=== PATIENT | female | born 1960 | race Caucasian/White ===

== ENCOUNTER → 2016-02-27 | Outpatient (CLI) | payer OTHER ==
--- NOTE | 2016-02-27 16:00 | XR ---
EXAMINATION TYPE: XR abdomen acute w cxr DATE OF EXAM: 02/27/2016 3:47 PM COMPARISON: Prior multiple view abdomen with chest x-ray dated 24 January 2016 HISTORY: Vomiting, abnormal urinalysis, R11.10, R 82.90 TECHNIQUE: Single view of the chest and 2 views of the abdomen are submitted. FINDINGS: Lung mass on the right is again noted. Prominent lung volumes suggests underlying COPD. No pneumothor ax or pleural effusion. There is no evidence of pneumoperitoneum or bowel obstruction. Vascular calci fications are again noted within the pelvis. IMPRESSION: Stable lung mass
== END | disposition home or self-care (01) ==
LOC: RADXRMAIN 15:25
PROVIDERS: ATTEND Family Medicine
DX: K59.00 Constipation, unspecified (principal)
CPT/HCPCS: 74022

== ENCOUNTER → 2016-05-08 | Outpatient (CLI) | payer OTHER ==
--- NOTE | 2016-05-08 14:19 | MR ---
EXAMINATION TYPE: MR brain wo/w con DATE OF EXAM: 05/08/2016 1:40 PM COMPARISON: CT brain February 15, 2016. HISTORY: Known metastatic brain cancer progress study. TECHNIQUE: Multiplanar, multisequence images of the brain and brainstem is performed without and with IV contras t, utilizing 8 mL intravenous MultiHance . FINDINGS: Diffusion weighted images demonstrate no evidence of a recent infarct or other diffusion ab normality. There is no extra-axial fluid collection. The ventricular system and cisternal spaces ar e stable and mildly prominent. There is redemonstration of heterogeneous left parenchymal lesion abut ting the left lateral ventricle that shows some heterogeneous peripheral linear enhancement on curren t study. It is significantly improved in size measuring 2.2 cm transversely by 2.0 cm in anterior pos terior dimension on axial image 97 by 2.1 cm in craniocaudal dimension on coronal image 16 and sagitt al image 13. Prior measurements are 4.3 cm x 3.4 cm on axial image [address] by 3.7 cm in cranio caudal dimension on series 3 image 32 without sequence. There is interval improvement in adjacent vas ogenic edema along the left lateral margin. There is interval resolution of subtle midline shift at t his level. Midline structures demonstrate normal morphology. The craniocervical junction appears within normal limits. Post contrast images demonstrate a second 4 mm suspicious enhancing parenchymal focus left hi gh parietal sulcus on axial image 123 confirmed on coronal image 20. The dural venous sinuses appear patent. There is persistent air-fluid level in left maxillary sinus. Remainder paranasal sinuses are clear. IMPRESSION: 1. Positive treatment response with improvement in left frontal lesion adjacent to the lateral ventri malcolm as detailed above. 2. New enhancing metastatic 4 mm focus high right parietal lobe is noted. RECIST CRITERIA: Partial Response : Improving disease .(Maximum Diameter 2.2 cm today vs 4.3 cm prio r)
== END | disposition home or self-care (01) ==
LOC: RADMRIMAIN 12:56
PROVIDERS: ATTEND Radiology Radiation Oncology
DX: C34.90 Malignant neoplasm of unspecified part of unspecified bronchus or lung (principal); C79.31 Secondary malignant neoplasm of brain
CPT/HCPCS: 70553; A9577

== ENCOUNTER 2016-05-25 11:35 | Emergency (ER) | payer OTHER ==
[2016-05-25] MEDS ORDERED: ACETAMINOPHEN TAB 500 MG TAB PO STA (11:54)
[2016-05-25] MEDS ORDERED: SODIUM CHLORIDE 0.9% 1,000 ML IV STA (11:55)
--- NOTE | 2016-05-25 11:58 | ED ---
General Adult HPI - General Chief complaint: Recheck/Abnormal Lab/Rx Stated complaint: HIGH HEARTRATE Time Seen by Provider: 05/25/16 11:48 Source: patient, family, RN notes reviewed Mode of arrival: wheelchair Limitations: no limitations - History of Present Illness Initial comments: Patient is a pleasant 56-year-old female presenting to the emergency department for elevated heart rate. Patient states onset of symptoms was today. Patient is treated at the oncology clinic for small cell lung cancer. Patient was being evaluated there and increased heart rate was noticed. Patient has no other complaints. Patient admits to having palpitations. No chest pain. No dyspnea. No fevers. Patient has been eating and drinking appropriately. - Related Data Home Medications Medication Instructions Recorded Confirmed Prochlorperazine [Compazine] 10 mg PO Q6H PRN 05/25/16 05/25/16 levETIRAcetam [Keppra] 500 mg PO Q12HR 05/25/16 05/25/16 Allergies Allergy/AdvReac Type Severity Reaction Status Date / Time No Known Allergies Allergy Verified 05/25/16 12:13 Review of Systems ROS Statement: Those systems with pertinent positive or pertinent negative responses have been documented in the HPI. ROS Other: All systems not noted in ROS Statement are negative. Constitutional: Denies: fever, chills Eyes: Denies: eye pain ENT: Denies: ear pain Respiratory: Denies: cough, dyspnea Cardiovascular: Reports: palpitations. Denies: chest pain Endocrine: Denies: fatigue Gastrointestinal: Denies: abdominal pain Genitourinary: Denies: dysuria Musculoskeletal: Denies: back pain Skin: Denies: rash Neurological: Denies: headache Past Medical History Past Medical History: GERD/Reflux, Hyperlipidemia Additional Past Medical History / Comment(s): LUNG CANCER- METS TO BRAIN History of Any Multi-Drug Resistant Organisms: None Reported Past Surgical History: Hysterectomy Past Psychological History: No Psychological Hx Reported Smoking Status: Current every day smoker Past Alcohol Use History: None Reported Past Drug Use History: None Reported General Exam Limitations: no limitations General appearance: alert, in no apparent distress Head exam: Present: atraumatic Eye exam: Present: normal appearance, PERRL ENT exam: Present: normal oropharynx Neck exam: Present: normal inspection Respiratory exam: Present: normal lung sounds bilaterally Cardiovascular Exam: Present: normal rhythm, tachycardia Expanded Peripheral pulses: 2+: Radial (R), Radial (L), Dorsalis Pedis (R), Dorsalis Pedis (L) GI/Abdominal exam: Present: soft. Absent: tenderness Extremities exam: Present: normal inspection. Absent: pedal edema, calf tenderness Neurological exam: Present: alert Psychiatric exam: Present: normal affect, normal mood Skin exam: Absent: rash Course Vital Signs 05/25/16 05/25/16 05/25/16 11:37 11:59 12:10 Temperature 99 F 99.1 F Pulse Rate 141 H Pulse Rate [ 124 H Machine Splitter ] Respiratory 20 Rate Blood Pressure 118/72 O2 Sat by Pulse 100 Oximetry 05/25/16 13:05 Temperature 97.4 F L Pulse Rate 118 H Pulse Rate [ Machine Splitter ] Respiratory 18 Rate Blood Pressure 110/60 O2 Sat by Pulse 98 Oximetry EKG Findings - EKG Comments: EKG Findings:: Sinus tachycardia with a rate of 120. Normal intervals. Normal axis. Normal QRS. Normal ST-T. Medical Decision Making - Medical Decision Making Patient reevaluated symptom-free. Patient feels better. Patient requests discharge. Heart rate 90. Case discussed in detail with Dr. Sarmiento who did want to ensure patient received some fluids otherwise can be discharged. - Lab Data Result diagrams: 05/25/16 12:03 05/25/16 12:03 Lab Results 05/25/16 05/25/16 05/25/16 Range/Units 12:03 12:03 12:03 WBC 14.1 H (3.8-10.6) k/uL RBC 3.22 L (3.80-5.40) m/uL Hgb 9.8 L (11.4-16.0) gm/dL Hct 31.1 L (34.0-46.0) % MCV 96.8 (80.0-100.0) fL MCH 30.5 (25.0-35.0) pg MCHC 31.5 (31.0-37.0) g/dL RDW 18.1 H (11.5-15.5) % Plt Count 594 H (150-450) k/uL Neutrophils % 85 % Lymphocytes % 9 % Monocytes % 4 % Eosinophils % 0 % Basophils % 0 % Neutrophils # 12.0 H (1.3-7.7) k/uL Lymphocytes # 1.2 (1.0-4.8) k/uL Monocytes # 0.6 (0-1.0) k/uL Eosinophils # 0.0 (0-0.7) k/uL Basophils # 0.0 (0-0.2) k/uL Hypochromasia Moderate Anisocytosis Slight Macrocytosis Slight PT (9.0-12.0) sec INR (<1.1) APTT (22.0-30.0) sec Sodium 132 L (137-145) mmol/L Potassium 4.0 (3.5-5.1) mmol/L Chloride 96 L (98-107) mmol/L Carbon Dioxide 27 (22-30) mmol/L Anion Gap 9 mmol/L BUN 5 L (7-17) mg/dL Creatinine 0.43 L (0.52-1.04) mg/dL Est GFR (MDRD) Af Amer >60 (>60 ml/min/1.73 sqM) Est GFR (MDRD) Non-Af >60 (>60 ml/min/1.73 sqM) Glucose 124 H (74-99) mg/dL Plasma Lactic Acid Mor 1.4 (0.7-2.0) mmol/L Calcium 8.7 (8.4-10.2) mg/dL Total Bilirubin 0.5 (0.2-1.3) mg/dL AST 13 L (14-36) U/L ALT 16 (9-52) U/L Alkaline Phosphatase 128 H (38-126) U/L Total Protein 6.4 (6.3-8.2) g/dL Albumin 3.2 L (3.5-5.0) g/dL Urine Color Urine Appearance (Clear) Urine pH (5.0-8.0) Ur Specific Plain (1.001-1.035) Urine Protein (Negative) Urine Glucose (UA) (Negative) Urine Ketones (Negative) Urine Blood (Negative) Urine Nitrite (Negative) Urine Bilirubin (Negative) Urine Urobilinogen (<2.0) mg/dL Ur Leukocyte Esterase (Negative) Influenza Type A RNA (Not Detectd) Influenza Type B (PCR) (Not Detectd) 05/25/16 05/25/16 05/25/16 Range/Units 12:03 12:11 13:48 WBC (3.8-10.6) k/uL RBC (3.80-5.40) m/uL Hgb (11.4-16.0) gm/dL Hct (34.0-46.0) % MCV (80.0-100.0) fL MCH (25.0-35.0) pg MCHC (31.0-37.0) g/dL RDW (11.5-15.5) % Plt Count (150-450) k/uL Neutrophils % % Lymphocytes % % Monocytes % % Eosinophils % % Basophils % % Neutrophils # (1.3-7.7) k/uL Lymphocytes # (1.0-4.8) k/uL Monocytes # (0-1.0) k/uL Eosinophils # (0-0.7) k/uL Basophils # (0-0.2) k/uL Hypochromasia Anisocytosis Macrocytosis PT 10.4 (9.0-12.0) sec INR 1.0 (<1.1) APTT 24.8 (22.0-30.0) sec Sodium (137-145) mmol/L Potassium (3.5-5.1) mmol/L Chloride (98-107) mmol/L Carbon Dioxide (22-30) mmol/L Anion Gap mmol/L BUN (7-17) mg/dL Creatinine (0.52-1.04) mg/dL Est GFR (MDRD) Af Amer (>60 ml/min/1.73 sqM) Est GFR (MDRD) Non-Af (>60 ml/min/1.73 sqM) Glucose (74-99) mg/dL Plasma Lactic Acid Mor 0.7 (0.7-2.0) mmol/L Calcium (8.4-10.2) mg/dL Total Bilirubin (0.2-1.3) mg/dL AST (14-36) U/L ALT (9-52) U/L Alkaline Phosphatase (38-126) U/L Total Protein (6.3-8.2) g/dL Albumin (3.5-5.0) g/dL Urine Color Urine Appearance (Clear) Urine pH (5.0-8.0) Ur Specific Plain (1.001-1.035) Urine Protein (Negative) Urine Glucose (UA) (Negative) Urine Ketones (Negative) Urine Blood (Negative) Urine Nitrite (Negative) Urine Bilirubin (Negative) Urine Urobilinogen (<2.0) mg/dL Ur Leukocyte Esterase (Negative) Influenza Type A RNA Not Detected (Not Detectd) Influenza Type B (PCR) Not Detected (Not Detectd) 05/25/16 Range/Units 14:42 WBC (3.8-10.6) k/uL RBC (3.80-5.40) m/uL Hgb (11.4-16.0) gm/dL Hct (34.0-46.0) % MCV (80.0-100.0) fL MCH (25.0-35.0) pg MCHC (31.0-37.0) g/dL RDW (11.5-15.5) % Plt Count (150-450) k/uL Neutrophils % % Lymphocytes % % Monocytes % % Eosinophils % % Basophils % % Neutrophils # (1.3-7.7) k/uL Lymphocytes # (1.0-4.8) k/uL Monocytes # (0-1.0) k/uL Eosinophils # (0-0.7) k/uL Basophils # (0-0.2) k/uL Hypochromasia Anisocytosis Macrocytosis PT (9.0-12.0) sec INR (<1.1) APTT (22.0-30.0) sec Sodium (137-145) mmol/L Potassium (3.5-5.1) mmol/L Chloride (98-107) mmol/L Carbon Dioxide (22-30) mmol/L Anion Gap mmol/L BUN (7-17) mg/dL Creatinine (0.52-1.04) mg/dL Est GFR (MDRD) Af Amer (>60 ml/min/1.73 sqM) Est GFR (MDRD) Non-Af (>60 ml/min/1.73 sqM) Glucose (74-99) mg/dL Plasma Lactic Acid Mor (0.7-2.0) mmol/L Calcium (8.4-10.2) mg/dL Total Bilirubin (0.2-1.3) mg/dL AST (14-36) U/L ALT (9-52) U/L Alkaline Phosphatase (38-126) U/L Total Protein (6.3-8.2) g/dL Albumin (3.5-5.0) g/dL Urine Color Yellow Urine Appearance Clear (Clear) Urine pH 6.0 (5.0-8.0) Ur Specific Plain 1.009 (1.001-1.035) Urine Protein Trace H (Negative) Urine Glucose (UA) Negative (Negative) Urine Ketones Negative (Negative) Urine Blood Negative (Negative) Urine Nitrite Negative (Negative) Urine Bilirubin Negative (Negative) Urine Urobilinogen <2.0 (<2.0) mg/dL Ur Leukocyte Esterase Negative (Negative) Influenza Type A RNA (Not Detectd) Influenza Type B (PCR) (Not Detectd) Disposition Clinical Impression: Tachycardia Disposition: HOME SELF-CARE Condition: Stable Instructions: Tachycardia (ED) Additional Instructions: Please follow-up with primary care physician and your oncologist in the next couple days for recheck. Return for fevers, weakness, increased heart rate, difficulty breathing, chest pain, worsening symptoms or other concerns. Referrals: Cassy Herrera MD [Primary Care Provider] - 1-2 days Justus Sarmiento MD [STAFF PHYSICIAN] - 1-2 days
[2016-05-25 12:20] LABS: Anisocytosis Slight; Basophils % (A) 0 %; CH 30.4; CHCM 31.7; Eosinophils % (A) 0 %; HCT 31.1 % (34.0-46.0); HDW 3.27; HGB 9.8 gm/dL (11.4-16.0); Hypochromasia Moderate; Luc # (Auto) 0.18; Luc % (Auto) 1; Lymphocytes # (A) 1.2 k/uL (1.0-4.8); Lymphocytes % (A) 9 %; MCH 30.5 pg (25.0-35.0); MCHC 31.5 g/dL (31.0-37.0); MCV 96.8 fL (80.0-100.0); Macrocytosis Slight; Monocytes # (A) 0.6 k/uL (0-1.0); Monocytes % (A) 4 %; Neutrophils % (A) 85 %; RBC 3.22 m/uL (3.80-5.40); RDW 18.1 % (11.5-15.5); WBC 14.1 k/uL (3.8-10.6)
[2016-05-25 12:33] LABS: Partial Thromboplastin Time 24.8 sec (22.0-30.0); Prothrombin Time 10.4 sec (9.0-12.0)
--- NOTE | 2016-05-25 12:36 | XR ---
EXAMINATION TYPE: XR chest 2V DATE OF EXAM: 05/25/2016 12:28 PM COMPARISON: 02/27/2016 TECHNIQUE: PA and lateral views submitted. HISTORY: Fever FINDINGS: The lungs are clear and there is no pneumothorax, pleural effusion, or focal pneumonia. Stable larg e mass right upper lobe. Underlying COPD suspected. Biapical pleural thickening. No overt failure. No new area of consolidation. Mild degenerative change of the spine. IMPRESSION: 1. Stable large right upper lobe lung mass.
[2016-05-25 12:39] LABS: ALT 16 U/L (9-52); AST 13 U/L (14-36); Alkaline Phosphatase 128 U/L (38-126); Anion Gap 9 mmol/L; Blood Urea Nitrogen 5 mg/dL (7-17); Calcium 8.7 mg/dL (8.4-10.2); Carbon Dioxide 27 mmol/L (22-30); Chloride 96 mmol/L (98-107); Glucose 124 mg/dL (74-99); Non-African American GFR(MDRD) >60 (>60 ml/min/1.73 sqM); Sodium 132 mmol/L (137-145); Total Bilirubin 0.5 mg/dL (0.2-1.3); Total Protein 6.4 g/dL (6.3-8.2)
[2016-05-25 15:15] LABS: Appearance,Urine Clear (Clear); Bilirubin,Urine Negative (Negative); Glucose,Urine (UA) Negative (Negative); Ketones,Urine Negative (Negative); Leukocyte Esterase,Urine Negative (Negative); Nitrite,Urine Negative (Negative); Protein,Urine Trace (Negative); Specific Gravity,Urine 1.009 (1.001-1.035); UA Billing (MACRO vs. MICRO) CHEM; Urobilinogen,Urine <2.0 mg/dL (<2.0)
[2016-05-25] MEDS ORDERED: SODIUM CHLORIDE 0.9% 500 ML IV STA (15:30)
[2016-05-25 16:34] VITALS: BP 122/63; PULSE 91; RESP 16; TEMP 98.1
== END 2016-05-25 16:42 | disposition home or self-care (01) ==
LOC: EC 11:35
DX: R00.0 Tachycardia, unspecified (principal); C34.90 Malignant neoplasm of unspecified part of unspecified bronchus or lung; C79.31 Secondary malignant neoplasm of brain; F17.200 Nicotine dependence, unspecified, uncomplicated; Z79.899 Other long term (current) drug therapy
CPT/HCPCS: 36415; 71020; 80053; 81003; 83605; 85025; 85610; 85730; 87040; 87086; 87502; 93005; 96360; 96361; 99285

== ENCOUNTER → 2016-05-26 | Outpatient (CLI) | payer OTHER ==
[2016-05-26 12:14] LABS: Blood Urea Nitrogen 4 mg/dL (7-17); Non-African American GFR(MDRD) >60 (>60 ml/min/1.73 sqM)
--- NOTE | 2016-05-26 13:04 | CT ---
EXAMINATION TYPE: CT angio chest DATE OF EXAM: 05/26/2016 12:56 PM COMPARISON: 01/31/2016 HISTORY: Patient poor historian. Patient has history of lung CA. Sent by physician for tachycardia to rule out pulmonary embolism CT DLP: 106.7 mGycm CONTRAST: CT chest with contrast and 3D reconstruction with MIP imaging is performed with IV Contrast, patient injected with 80 mL of Omnipaque 350. Contrast-enhanced CT of the chest was performed through the course of the pulmonary arteries with rickey g and mediastinal window settings submitted. 3D reconstruction with MIP imaging was also performed. PULMONARY ARTERIES: The pulmonary arteries and their major tributaries are patent. I do not see duong dence for sizable filling defect to suggest pulmonary embolic process. LUNGS: Right hilar lobulated mass is again noted and currently measures 6.3 x 4.6 x 4.9 cm versus 7.3 x 5.8 x 5.0 cm previously. There is an adjacent satellite nodule measuring 1.7 cm which may have bee n present previously. The mild postobstructive infiltrate is seen within the right upper lobe. Stable lobulated density in the right middle lobe measures 1.5 cm versus 1.5 cm. MEDIASTINUM: Thoracic aorta is of normal caliber . The heart is not enlarged. No evidence for media stinal mass. No mediastinal lymph nodes greater than 1cm. HILAR STRUCTURES: No evidence for mass. No hilar lymph nodes greater than 1 cm. UPPER ABDOMEN: No significant abnormality is seen. IMPRESSION: 1. No evidence for Pulmonary embolism at this time. 2. Right hilar mass with areas of postobstructive infiltrate as noted above.
== END | disposition home or self-care (01) ==
LOC: RADCTMAIN 11:38
PROVIDERS: ATTEND Internal Medicine Hematology & Oncology
DX: R91.8 Other nonspecific abnormal finding of lung field (principal); R00.0 Tachycardia, unspecified
CPT/HCPCS: 82565; 84520; 71275; 36415; Q9967

== ENCOUNTER → 2016-06-02 | Outpatient (CLI) | payer OTHER ==
[2016-06-02 08:19] LABS: Blood Urea Nitrogen 5 mg/dL (7-17); Non-African American GFR(MDRD) >60 (>60 ml/min/1.73 sqM)
--- NOTE | 2016-06-02 09:15 | CT ---
EXAMINATION TYPE: CT ChestAbdPelvis w con DATE OF EXAM: 06/02/2016 8:57 AM COMPARISON: 05/26/2016 and 01/31/2016 HISTORY: Lung cancer CT DLP: 404.20 mGycm CONTRAST: CT scan of the chest, abdomen and pelvis is performed with Oral Contrast and with IV Contrast, patien t injected with 100 ml mL of Omnipaque 300. CT Chest: LUNGS: Lobulated and heterogenous right hilar mass is slightly smaller in size compared to examinatio n of 01/31/2016 with current measurement of 5.8 x 5.7 x 4.9 cm versus 7.3 x 5.8 x 5.0 cm.The mass dem onstrates a heterogeneity and internal calcifications. Peripheral satellite nodule measures 1.3 cm ve rsus 1 cm previously. Mild postobstructive changes are seen. Mass is contiguous with the right hilum. No new masses are seen. Calcified nodule periphery of the left mid lung zone. Biapical scarring iden tified with mild emphysematous change. MEDIASTINUM: Thoracic aorta is of normal caliber. The heart is not enlarged. No evidence for media stinal mass or adenopathy. HILAR STRUCTURES: No evidence for mass. No hilar adenopathy is appreciated. OTHER: No significant abnormality. CONTRAST CT ABDOMEN AND PELVIS FINDINGS: LIVER/GB: No calcified gallstones. No space occupying hepatic lesion. Biliary tree is of normal ca liber. PANCREAS: No inflammation. No distinct mass. SPLEEN: No splenic enlargement. No lesion seen. ADRENALS: No nodule. No thickening. KIDNEYS/BLADDER: No hydronephrosis. No nephrolithiasis. No disctinct renal mass. BOWEL: Normal appendix. Normal bowel caliber. No inflammation. Moderate fecal stasis is identified. GENITAL ORGANS: Hysterectomy changes identified. LYMPH NODES: No greater than 1cm abdominal or pelvic lymph nodes are appreciated. AORTA: No significant abnormality. OSSEOUS STRUCTURES: Degenerative changes seen without definite osseous lesion. OTHER: No significant additional abnormality is seen. IMPRESSION: 1. Malignant right hilar mass is slightly smaller in size in the interval with mild postobstructive c hange and small satellite nodule identified. The mass is contiguous with the right hilum. 2. No evidence for metastatic disease to the abdomen or pelvis at this time.
== END | disposition home or self-care (01) ==
LOC: RADCTMAIN 07:45
PROVIDERS: ATTEND Internal Medicine Hematology & Oncology
DX: C34.90 Malignant neoplasm of unspecified part of unspecified bronchus or lung (principal); R91.1 Solitary pulmonary nodule
CPT/HCPCS: 82565; 84520; 71260; 74177; 36415; Q9967

== ENCOUNTER → 2016-06-08 | Outpatient (CLI) | payer OTHER ==
--- NOTE | 2016-06-09 08:24 | MR ---
EXAMINATION TYPE: MR brain wo/w con DATE OF EXAM: 06/08/2016 11:59 AM COMPARISON: MRI brain May 08, 2016. HISTORY: Secondary malignant neoplasm of brain, metastatic disease progress study. TECHNIQUE: Multiplanar, multisequence images of the brain and brainstem is performed without and with IV contras t, utilizing 7 mL intravenous MultiHance . FINDINGS: Diffusion weighted images demonstrate no evidence of a recent infarct or other diffusion ab normality. There is no worrisome extra-axial fluid collection. There is mild ventricular and sulcal prominence consistent with diffuse age-related cerebral atrophy redemonstrated. There is redemonstrat ion of heterogeneous left parenchymal lesion abutting the left lateral ventricle that redemonstrates heterogeneous rim type enhancement that measures 2.1 x 1.9 cm on current study axial image 49 felt gr ossly stable in size versus prior exam. Craniocaudal dimension is 2.4 cm on sagittal image [address] able. Some adjacent vasogenic edema along the superior aspect of lesion remains present and felt stab le. There is stable 4 mm enhancing gyral focus high right parietal lobe on axial image 61 All post co ntrast images are degraded by artifact. No obvious new enhancing lesion is present. Midline structures demonstrate normal morphology. The craniocervical junction appears within normal limits. Post contrast images demonstrate no abnormal enhancement. The dural venous sinuses appear pa tent. The globes are intact bilaterally. There is interval resolution of air-fluid level in the left maxillary sinus. There is new mild to moderate mucosal thickening involving left sphenoid sinus. IMPRESSION: 1. Left frontal lesion adjacent to lateral ventricle is stable. Tiny high right parietal focus is sta ble. No new enhancing lesions are seen.
== END | disposition home or self-care (01) ==
LOC: RADMRIMAIN 11:13
PROVIDERS: ATTEND Radiology Radiation Oncology
DX: C79.31 Secondary malignant neoplasm of brain (principal)
CPT/HCPCS: 70553; A9577

== ENCOUNTER 2016-07-14 10:24 | Inpatient (IN) | payer OTHER ==
[2016-07-14] MEDS ORDERED: ONDANSETRON 4 MG/2 ML VIAL IVP STA (10:44)
[2016-07-14] MEDS ORDERED: SODIUM CHLORIDE 0.9% 500 ML IV STA (10:44)
[2016-07-14] MEDS ORDERED: SODIUM CHLORIDE 0.9% 1,000 ML IV STA (10:44)
[2016-07-14] MEDS ORDERED: cefTRIAXone 2,000 MG in SODIUM CHLORIDE 0.9% 100 ML IVPB STA (10:45)
[2016-07-14 11:02] LABS: Basophils % (A) 0 %; CH 30.3; CHCM 31.4; Eosinophils % (A) 0 %; HCT 35.4 % (34.0-46.0); HGB 11.2 gm/dL (11.4-16.0); Hypochromasia Slight; Luc # (Auto) 0.08; Luc % (Auto) 1; Lymphocytes % (A) 13 %; MCH 30.4 pg (25.0-35.0); MCHC 31.5 g/dL (31.0-37.0); MCV 96.5 fL (80.0-100.0); Monocytes # (A) 0.3 k/uL (0-1.0); Monocytes % (A) 4 %; Neutrophils # (A) 6.3 k/uL (1.3-7.7); Neutrophils % (A) 81 %; RBC 3.67 m/uL (3.80-5.40); RDW 14.6 % (11.5-15.5); WBC 7.8 k/uL (3.8-10.6); WBC (Perox) 8.04
[2016-07-14 11:09] LABS: ALT 17 U/L (9-52); AST 16 U/L (14-36); Alkaline Phosphatase 108 U/L (38-126); Anion Gap 9 mmol/L; Blood Urea Nitrogen 8 mg/dL (7-17); Calcium 8.7 mg/dL (8.4-10.2); Carbon Dioxide 27 mmol/L (22-30); Chloride 98 mmol/L (98-107); Glucose 185 mg/dL (74-99); Non-African American GFR(MDRD) >60 (>60 ml/min/1.73 sqM); Potassium 3.2 mmol/L (3.5-5.1); Sodium 134 mmol/L (137-145); Total Bilirubin 0.5 mg/dL (0.2-1.3); Total Protein 6.2 g/dL (6.3-8.2)
[2016-07-14 11:17] LABS: INR 1.1 (<1.1); Partial Thromboplastin Time 24.7 sec (22.0-30.0); Prothrombin Time 10.9 sec (9.0-12.0)
--- NOTE | 2016-07-14 11:18 | XR ---
EXAMINATION TYPE: XR chest 2V DATE OF EXAM: 07/14/2016 COMPARISON: Prior chest x-ray 05/25/2016 HISTORY: Weakness, lung carcinoma TECHNIQUE: Frontal and lateral views of the chest are obtained. FINDINGS: The patient's right-sided upper lobe mass is again noted and is thought to have grown slig htly in the interval measuring slightly greater than 7 cm. No evident adenopathy. No pneumothorax or pleural effusion. Heart is small. There are overlying cardiac leads. IMPRESSION: Right upper lobe mass has enlarged.
[2016-07-14 11:22] LABS: Creatine Kinase <20 U/L (30-135)
[2016-07-14 11:35] LABS: Creatine Kinase MB <0.2 ng/mL (0.0-2.4); Troponin I <0.012 ng/mL (0.000-0.034)
[2016-07-14] MEDS ORDERED: POTASSIUM CHLORIDE ORAL LIQUID 40 MEQ/30 ML CUP PO ONE (12:39)
--- NOTE | 2016-07-14 12:39 | ED ---
Weakness HPI - General Chief complaint: Weakness Stated complaint: Weakness Time Seen by Provider: 07/14/16 10:27 Source: patient, family, EMS Mode of arrival: EMS Limitations: no limitations - History of Present Illness Initial comments: 56 years old has a history of hemorrhagic stroke, lung mass she came in with her said she is not eating well she has been vomiting and has some loose stools she has a hard time keeping anything down has lost a lot of weight and she is to the point where she hardly Move or get out of the bed she was done with her treatment in May she had a mild fever today and now Stephen tracing. She denies any headaches no chest pain she has a shortness of breath no abdominal pain no frequency urgency dysuria no symptoms of TIA or CVA - Related Data Home Medications Medication Instructions Recorded Confirmed levETIRAcetam [Keppra] 500 mg PO Q12HR 05/25/16 07/14/16 Docusate [Colace] 100 mg PO DAILY PRN 07/14/16 07/14/16 Dronabinol [Marinol] 2.5 mg PO DAILY 07/14/16 07/14/16 Pravastatin Sodium [Pravachol] 20 mg PO DAILY 07/14/16 07/14/16 Allergies Allergy/AdvReac Type Severity Reaction Status Date / Time No Known Allergies Allergy Verified 07/14/16 10:36 Review of Systems ROS Statement: Those systems with pertinent positive or pertinent negative responses have been documented in the HPI. ROS Other: All systems not noted in ROS Statement are negative. Past Medical History Past Medical History: GERD/Reflux, Hyperlipidemia Additional Past Medical History / Comment(s): LUNG CANCER- METS TO BRAIN History of Any Multi-Drug Resistant Organisms: None Reported Past Surgical History: Hysterectomy Past Psychological History: No Psychological Hx Reported Smoking Status: Current every day smoker Past Alcohol Use History: None Reported Past Drug Use History: None Reported - Past Family History Father Family Medical History: No Reported History Mother Family Medical History: No Reported History General Exam - General Exam Comments Initial Comments: General: The patient is awake but she is very weak, very thin looks pale and looks dehydrated, GCS is 15 Skin: Skin is warm and dry and no rashes or lesions are noted. Eye: Pupils are equal, round and reactive to light, extra-ocular movements are intact; there is normal conjunctiva bilaterally. Ears, nose, mouth and throat: Mucosal membranes are dry, dehydrated Neck: The neck is supple, there is no tenderness or JVD. Cardiovascular: There is regular rate and rhythm, significant tachycardia Respiratory: To auscultation bilateral, his breath sounds at the bases with a crackles Gastrointestinal: Soft, non-distended, non-tender abdomen without masses or organomegaly noted. There is no rebound or guarding present. Bowel sounds are unremarkable. Back: There is no tenderness to palpation in the midline. There is no obvious deformity. Musculoskeletal: Normal ROM, no tenderness, There is no pedal edema. There is no calf tenderness or swelling. No cords were appreciated. Neurological: CN II-XII intact, Cranial nerves III through XII are intact. There are no obvious motor or sensory deficits. Coordination appears grossly intact. Speech is normal. Psychiatric: Cooperative, seems depressed. Limitations: no limitations Course Vital Signs 07/14/16 07/14/16 07/14/16 10:26 10:30 11:27 Temperature 99.8 F H Pulse Rate 137 H 112 H Respiratory 20 20 Rate Blood Pressure 120/80 O2 Sat by Pulse 99 100 Oximetry 07/14/16 07/14/16 07/14/16 11:48 12:57 13:17 Temperature Pulse Rate 109 H 106 H 92 Respiratory 16 16 20 Rate Blood Pressure 120/73 123/69 137/70 O2 Sat by Pulse 99 100 98 Oximetry 07/14/16 07/14/16 07/14/16 14:25 15:23 16:33 Temperature 99 F Pulse Rate 94 100 90 Respiratory 16 18 16 Rate Blood Pressure 125/70 132/73 129/70 O2 Sat by Pulse 100 99 100 Oximetry 07/14/16 07/14/16 17:11 17:30 Temperature 98.2 F Pulse Rate 90 Respiratory 18 Rate Blood Pressure 123/64 O2 Sat by Pulse 100 Oximetry EKG Findings - EKG Comments: EKG Findings:: Heart rate is 30 J to sinus tach ID interval is 122 QRS duration is 82 QT/QTc is 310/459 examination this EKG does not reveal any ST elevation or ST depression Medical Decision Making - Lab Data Result diagrams: 07/14/16 10:33 07/16/16 16:51 Lab Results 07/14/16 07/14/16 07/14/16 Range/Units 10:33 10:33 10:33 WBC 7.8 (3.8-10.6) k/uL RBC 3.67 L (3.80-5.40) m/uL Hgb 11.2 L (11.4-16.0) gm/dL Hct 35.4 (34.0-46.0) % MCV 96.5 (80.0-100.0) fL MCH 30.4 (25.0-35.0) pg MCHC 31.5 (31.0-37.0) g/dL RDW 14.6 (11.5-15.5) % Plt Count 378 (150-450) k/uL Neutrophils % 81 % Lymphocytes % 13 % Monocytes % 4 % Eosinophils % 0 % Basophils % 0 % Neutrophils # 6.3 (1.3-7.7) k/uL Lymphocytes # 1.0 (1.0-4.8) k/uL Monocytes # 0.3 (0-1.0) k/uL Eosinophils # 0.0 (0-0.7) k/uL Basophils # 0.0 (0-0.2) k/uL Hypochromasia Slight PT (9.0-12.0) sec INR (<1.1) APTT (22.0-30.0) sec Sodium 134 L (137-145) mmol/L Potassium 3.2 L (3.5-5.1) mmol/L Chloride 98 (98-107) mmol/L Carbon Dioxide 27 (22-30) mmol/L Anion Gap 9 mmol/L BUN 8 (7-17) mg/dL Creatinine 0.36 L (0.52-1.04) mg/dL Est GFR (MDRD) Af Amer >60 (>60 ml/min/1.73 sqM) Est GFR (MDRD) Non-Af >60 (>60 ml/min/1.73 sqM) Glucose 185 H (74-99) mg/dL Plasma Lactic Acid Mor (0.7-2.0) mmol/L Calcium 8.7 (8.4-10.2) mg/dL Magnesium (1.6-2.3) mg/dL Total Bilirubin 0.5 (0.2-1.3) mg/dL AST 16 (14-36) U/L ALT 17 (9-52) U/L Alkaline Phosphatase 108 (38-126) U/L Total Creatine Kinase <20 L (30-135) U/L CK-MB (CK-2) <0.2 (0.0-2.4) ng/mL CK-MB (CK-2) Rel Index Troponin I <0.012 (0.000-0.034) ng/mL NT-Pro-B Natriuret Pep pg/mL Total Protein 6.2 L (6.3-8.2) g/dL Albumin 3.1 L (3.5-5.0) g/dL Urine Color Urine Appearance (Clear) Urine pH (5.0-8.0) Ur Specific [place] (1.001-1.035) Urine Protein (Negative) Urine Glucose (UA) (Negative) Urine Ketones (Negative) Urine Blood (Negative) Urine Nitrite (Negative) Urine Bilirubin (Negative) Urine Urobilinogen (<2.0) mg/dL Ur Leukocyte Esterase (Negative) Urine WBC (0-5) /hpf Ur Squamous Epith Cells (0-4) /hpf Amorphous Sediment (None) /hpf Urine Mucus (None) /hpf 07/14/16 07/14/16 07/14/16 Range/Units 10:33 10:33 10:54 WBC (3.8-10.6) k/uL RBC (3.80-5.40) m/uL Hgb (11.4-16.0) gm/dL Hct (34.0-46.0) % MCV (80.0-100.0) fL MCH (25.0-35.0) pg MCHC (31.0-37.0) g/dL RDW (11.5-15.5) % Plt Count (150-450) k/uL Neutrophils % % Lymphocytes % % Monocytes % % Eosinophils % % Basophils % % Neutrophils # (1.3-7.7) k/uL Lymphocytes # (1.0-4.8) k/uL Monocytes # (0-1.0) k/uL Eosinophils # (0-0.7) k/uL Basophils # (0-0.2) k/uL Hypochromasia PT 10.9 (9.0-12.0) sec INR 1.1 (<1.1) APTT 24.7 (22.0-30.0) sec Sodium (137-145) mmol/L Potassium (3.5-5.1) mmol/L Chloride (98-107) mmol/L Carbon Dioxide (22-30) mmol/L Anion Gap mmol/L BUN (7-17) mg/dL Creatinine (0.52-1.04) mg/dL Est GFR (MDRD) Af Amer (>60 ml/min/1.73 sqM) Est GFR (MDRD) Non-Af (>60 ml/min/1.73 sqM) Glucose (74-99) mg/dL Plasma Lactic Acid Mor 2.0 (0.7-2.0) mmol/L Calcium (8.4-10.2) mg/dL Magnesium (1.6-2.3) mg/dL Total Bilirubin (0.2-1.3) mg/dL AST (14-36) U/L ALT (9-52) U/L Alkaline Phosphatase (38-126) U/L Total Creatine Kinase (30-135) U/L CK-MB (CK-2) (0.0-2.4) ng/mL CK-MB (CK-2) Rel Index Troponin I (0.000-0.034) ng/mL NT-Pro-B Natriuret Pep 309 pg/mL Total Protein (6.3-8.2) g/dL Albumin (3.5-5.0) g/dL Urine Color Urine Appearance (Clear) Urine pH (5.0-8.0) Ur Specific [place] (1.001-1.035) Urine Protein (Negative) Urine Glucose (UA) (Negative) Urine Ketones (Negative) Urine Blood (Negative) Urine Nitrite (Negative) Urine Bilirubin (Negative) Urine Urobilinogen (<2.0) mg/dL Ur Leukocyte Esterase (Negative) Urine WBC (0-5) /hpf Ur Squamous Epith Cells (0-4) /hpf Amorphous Sediment (None) /hpf Urine Mucus (None) /hpf 07/14/16 07/15/16 07/15/16 Range/Units 12:57 11:23 19:43 WBC (3.8-10.6) k/uL RBC (3.80-5.40) m/uL Hgb (11.4-16.0) gm/dL Hct (34.0-46.0) % MCV (80.0-100.0) fL MCH (25.0-35.0) pg MCHC (31.0-37.0) g/dL RDW (11.5-15.5) % Plt Count (150-450) k/uL Neutrophils % % Lymphocytes % % Monocytes % % Eosinophils % % Basophils % % Neutrophils # (1.3-7.7) k/uL Lymphocytes # (1.0-4.8) k/uL Monocytes # (0-1.0) k/uL Eosinophils # (0-0.7) k/uL Basophils # (0-0.2) k/uL Hypochromasia PT (9.0-12.0) sec INR (<1.1) APTT (22.0-30.0) sec Sodium 133 L (137-145) mmol/L Potassium 3.4 L 6.1 H (3.5-5.1) mmol/L Chloride 101 (98-107) mmol/L Carbon Dioxide 25 (22-30) mmol/L Anion Gap 7 mmol/L BUN 3 L (7-17) mg/dL Creatinine 0.30 L (0.52-1.04) mg/dL Est GFR (MDRD) Af Amer >60 (>60 ml/min/1.73 sqM) Est GFR (MDRD) Non-Af >60 (>60 ml/min/1.73 sqM) Glucose 88 (74-99) mg/dL Plasma Lactic Acid Mor (0.7-2.0) mmol/L Calcium 8.1 L (8.4-10.2) mg/dL Magnesium (1.6-2.3) mg/dL Total Bilirubin (0.2-1.3) mg/dL AST (14-36) U/L ALT (9-52) U/L Alkaline Phosphatase (38-126) U/L Total Creatine Kinase (30-135) U/L CK-MB (CK-2) (0.0-2.4) ng/mL CK-MB (CK-2) Rel Index Troponin I (0.000-0.034) ng/mL NT-Pro-B Natriuret Pep pg/mL Total Protein (6.3-8.2) g/dL Albumin (3.5-5.0) g/dL Urine Color Yellow Urine Appearance Turbid H (Clear) Urine pH 6.0 (5.0-8.0) Ur Specific [place] 1.020 (1.001-1.035) Urine Protein 1+ H (Negative) Urine Glucose (UA) Negative (Negative) Urine Ketones 1+ H (Negative) Urine Blood Negative (Negative) Urine Nitrite Negative (Negative) Urine Bilirubin Negative (Negative) Urine Urobilinogen <2.0 (<2.0) mg/dL Ur Leukocyte Esterase Negative (Negative) Urine WBC 8 H (0-5) /hpf Ur Squamous Epith Cells 2 (0-4) /hpf Amorphous Sediment Occasional H (None) /hpf Urine Mucus Many H (None) /hpf 07/15/16 07/16/16 07/16/16 Range/Units 20:59 01:15 07:45 WBC (3.8-10.6) k/uL RBC (3.80-5.40) m/uL Hgb (11.4-16.0) gm/dL Hct (34.0-46.0) % MCV (80.0-100.0) fL MCH (25.0-35.0) pg MCHC (31.0-37.0) g/dL RDW (11.5-15.5) % Plt Count (150-450) k/uL Neutrophils % % Lymphocytes % % Monocytes % % Eosinophils % % Basophils % % Neutrophils # (1.3-7.7) k/uL Lymphocytes # (1.0-4.8) k/uL Monocytes # (0-1.0) k/uL Eosinophils # (0-0.7) k/uL Basophils # (0-0.2) k/uL Hypochromasia PT (9.0-12.0) sec INR (<1.1) APTT (22.0-30.0) sec Sodium 132 L (137-145) mmol/L Potassium 4.2 3.1 L (3.5-5.1) mmol/L Chloride 102 (98-107) mmol/L Carbon Dioxide 23 (22-30) mmol/L Anion Gap 7 mmol/L BUN <2 L (7-17) mg/dL Creatinine 0.28 L (0.52-1.04) mg/dL Est GFR (MDRD) Af Amer >60 (>60 ml/min/1.73 sqM) Est GFR (MDRD) Non-Af >60 (>60 ml/min/1.73 sqM) Glucose 85 (74-99) mg/dL Plasma Lactic Acid Mor (0.7-2.0) mmol/L Calcium 7.6 L (8.4-10.2) mg/dL Magnesium 1.5 L (1.6-2.3) mg/dL Total Bilirubin (0.2-1.3) mg/dL AST (14-36) U/L ALT (9-52) U/L Alkaline Phosphatase (38-126) U/L Total Creatine Kinase (30-135) U/L CK-MB (CK-2) (0.0-2.4) ng/mL CK-MB (CK-2) Rel Index Troponin I (0.000-0.034) ng/mL NT-Pro-B Natriuret Pep pg/mL Total Protein (6.3-8.2) g/dL Albumin (3.5-5.0) g/dL Urine Color Urine Appearance (Clear) Urine pH (5.0-8.0) Ur Specific [place] (1.001-1.035) Urine Protein (Negative) Urine Glucose (UA) (Negative) Urine Ketones (Negative) Urine Blood (Negative) Urine Nitrite (Negative) Urine Bilirubin (Negative) Urine Urobilinogen (<2.0) mg/dL Ur Leukocyte Esterase (Negative) Urine WBC (0-5) /hpf Ur Squamous Epith Cells (0-4) /hpf Amorphous Sediment (None) /hpf Urine Mucus (None) /hpf 07/16/16 Range/Units 11:55 WBC (3.8-10.6) k/uL RBC (3.80-5.40) m/uL Hgb (11.4-16.0) gm/dL Hct (34.0-46.0) % MCV (80.0-100.0) fL MCH (25.0-35.0) pg MCHC (31.0-37.0) g/dL RDW (11.5-15.5) % Plt Count (150-450) k/uL Neutrophils % % Lymphocytes % % Monocytes % % Eosinophils % % Basophils % % Neutrophils # (1.3-7.7) k/uL Lymphocytes # (1.0-4.8) k/uL Monocytes # (0-1.0) k/uL Eosinophils # (0-0.7) k/uL Basophils # (0-0.2) k/uL Hypochromasia PT (9.0-12.0) sec INR (<1.1) APTT (22.0-30.0) sec Sodium (137-145) mmol/L Potassium 3.0 L* (3.5-5.1) mmol/L Chloride (98-107) mmol/L Carbon Dioxide (22-30) mmol/L Anion Gap mmol/L BUN (7-17) mg/dL Creatinine (0.52-1.04) mg/dL Est GFR (MDRD) Af Amer (>60 ml/min/1.73 sqM) Est GFR (MDRD) Non-Af (>60 ml/min/1.73 sqM) Glucose (74-99) mg/dL Plasma Lactic Acid Mor (0.7-2.0) mmol/L Calcium (8.4-10.2) mg/dL Magnesium 2.1 (1.6-2.3) mg/dL Total Bilirubin (0.2-1.3) mg/dL AST (14-36) U/L ALT (9-52) U/L Alkaline Phosphatase (38-126) U/L Total Creatine Kinase (30-135) U/L CK-MB (CK-2) (0.0-2.4) ng/mL CK-MB (CK-2) Rel Index Troponin I (0.000-0.034) ng/mL NT-Pro-B Natriuret Pep pg/mL Total Protein (6.3-8.2) g/dL Albumin (3.5-5.0) g/dL Urine Color Urine Appearance (Clear) Urine pH (5.0-8.0) Ur Specific [place] (1.001-1.035) Urine Protein (Negative) Urine Glucose (UA) (Negative) Urine Ketones (Negative) Urine Blood (Negative) Urine Nitrite (Negative) Urine Bilirubin (Negative) Urine Urobilinogen (<2.0) mg/dL Ur Leukocyte Esterase (Negative) Urine WBC (0-5) /hpf Ur Squamous Epith Cells (0-4) /hpf Amorphous Sediment (None) /hpf Urine Mucus (None) /hpf Disposition Clinical Impression: Tachycardia, Dehydration, Profound fatigue Disposition: ADMITTED IP TO THIS HOSP
[2016-07-14] MEDS ORDERED: SODIUM CHLORIDE 0.9% 1,000 ML IV ONE (12:41)
[2016-07-14] MEDS ORDERED: DOCUSATE 100 MG CAP PO PRN (12:45)
[2016-07-14 13:21] LABS: Amorphous Sediment,Urine Occasional /hpf; Appearance,Urine Turbid (Clear); Bilirubin,Urine Negative (Negative); Glucose,Urine (UA) Negative (Negative); Ketones,Urine 1+ (Negative); Leukocyte Esterase,Urine Negative (Negative); Mucus,Urine Many /hpf; Nitrite,Urine Negative (Negative); Particle Count 31728; Protein,Urine 1+ (Negative); Squamous Epithelial Cell,Urine 2 /hpf (0-4); UA Billing (MACRO vs. MICRO) MICRO; Urobilinogen,Urine <2.0 mg/dL (<2.0); WBC,Urine 8 /hpf (0-5)
[2016-07-14] MEDS: levETIRAcetam 500 MG TAB PO SCH (20:21)
[2016-07-15] MEDS: DRONABINOL 2.5 MG CAP PO SCH (08:12)
[2016-07-15] MEDS: levETIRAcetam 500 MG TAB PO SCH ×2 (08:13→21:02)
[2016-07-15] MEDS: PRAVASTATIN SODIUM 20 MG TAB PO SCH (08:13)
[2016-07-15] MEDS ORDERED: cefTRIAXone 2,000 MG in SODIUM CHLORIDE 0.9% 100 ML IVPB SCH (09:00)
[2016-07-15 10:58] VITALS: BMI 13.1
[2016-07-15 12:38] LABS: Anion Gap 7 mmol/L; Blood Urea Nitrogen 3 mg/dL (7-17); Calcium 8.1 mg/dL (8.4-10.2); Carbon Dioxide 25 mmol/L (22-30); Chloride 101 mmol/L (98-107); Glucose 88 mg/dL (74-99); Non-African American GFR(MDRD) >60 (>60 ml/min/1.73 sqM); Potassium 3.4 mmol/L (3.5-5.1); Sodium 133 mmol/L (137-145)
--- NOTE | 2016-07-15 12:44 | HP ---
DATE OF ADMISSION: A 56-year-old with history of lung mass and multiple metastatic lesions for which patient was receiving radiation therapy, came in with complaints of generalized weakness. Patient does not have any focal weakness and patient is severely cachectic. Patient has a history of lung cancer for which patient completed chemotherapy and patient has had radiation therapy for her brain mets. Patient does not have any focal weakness or focal sensory deficits. Patient denied any fever, chills. Patient denied any nausea. Patient has been vomiting, apparently. Patient did not have those symptoms here today and patient did not have any fever. Patient denied any dysuria, cough. Patient appears to be too severely cachectic, malnourished and dehydrated because of which patient was weak but did improve with IV fluids, which I am increasing 100 mL from 50 mL. Patient does have acute renal failure and hypovolemic hyponatremia. REVIEW OF SYSTEMS: GENERAL: As described in HPI. GASTROINTESTINAL: As described in HPI. HEENT: No recent visual problems or hearing problems. Denied any sore throat. CARDIOVASCULAR: No chest pain, orthopnea, PND, no palpitations, no syncope. PULMONARY: No shortness of breath, no cough, no hemoptysis. NEUROLOGICAL: No headaches, no weakness, no numbness. HEMATOLOGICAL: Denies any bleeding or petechiae. GENITOURINARY: Denies any burning micturition, frequency, or urgency. MUSCULOSKELETAL/RHEUMATOLOGICAL: Denies any joint pain, swelling, or any muscle pain. ENDOCRINE: Denies any polyuria or polydipsia. The rest of the 14 point review of systems is negative. Home medications include: 1. Levetiracetam. 2. Docusate. 3. Dronabinol. 4. Pravastatin. Levetiracetam she is taking basically prophylactically for her brain mets. No known drug allergies. PAST MEDICAL HISTORY: Significant for gastroesophageal disease, hyperlipidemia, lung cancer with metastases disease to brain. Patient had a hysterectomy. SOCIAL HISTORY: Patient does smoke. Denied any alcohol abuse or any drug abuse. FAMILY HISTORY: Not available at this point of time. PHYSICAL EXAMINATION: VITAL SIGNS: Temperature 98.1, pulse of 106, respiratory rate of 18, blood pressure 119/60. Saturating at 99% on room air. GENERAL: Patient is severely cachectic, thin built female., patient has significant generalized weakness. NEUROLOGICAL: Bilateral upper and lower limbs strength is only about 3 to 4/5. HEENT: Pupils are round and equally reacting to light. EOMI. No scleral icterus. No conjunctival pallor. Normocephalic, atraumatic. No pharyngeal erythema. No thyromegaly. CARDIOVASCULAR: S1 and S2 present. No murmurs, rubs, or gallops. PULMONARY: Chest is clear to auscultation, no wheezing or crackles. ABDOMEN: Soft, nontender, nondistended, normoactive bowel sounds. No palpable organomegaly. MUSCULOSKELETAL: No joint swelling or deformity. EXTREMITIES: No cyanosis, clubbing, or pedal edema. SKIN: No rashes. LABORATORY DATA: CBC and BMP are abnormal for sodium of 134, hemoglobin of 11.4, creatinine is 0.36. Blood glucose is 185. ASSESSMENT AND PLAN: 1. Severe generalized weakness secondary to dehydration as well as malnutrition which appears to be moderate to severe malnutrition. Will start her on Ensure. Patient will continue with dronabinol and IV fluids will be increased. Patient already has symptomatic improvement. Patient probably will require subacute rehabilitation. PT and OT evaluated the patient. 2. Severe cachexia secondary to her primary lung cancer. 3. Hyperlipidemia. 4. Lung cancer with metastatic lesions to brain and patient received radiation therapy. Oncology evaluated the patient and I will leave the decision of repeating the CT of the head to them. 5. Tachycardia due to dehydration. 6. Hypovolemic hyponatremia, expected to improve with IV fluids. 7. Acute renal failure, expected to improve with IV fluids
[2016-07-15] MEDS ORDERED: Potassium Replacement Protocol 1 EACH MISC MISCELLANE PRN (15:21)
[2016-07-15] MEDS: POTASSIUM CHLORIDE ER 20 MEQ TAB.ER PO SCH ×2 (16:49→17:48)
[2016-07-15] MEDS ORDERED: RX INFO: IV CONTRAST WAS GIVEN 1 EACH MISC MISCELLANE PRN (17:08)
[2016-07-15] MEDS: SODIUM CHLORIDE 0.9% 1,000 ML IV SCH (17:12)
[2016-07-15] MEDS: HEPARIN SODIUM,PORCINE 5,000 UNIT/ML 1 ML VIAL SQ SCH (21:04)
[2016-07-16] MEDS ORDERED: Magnesium Replacement Protocol 1 EACH MISC MISCELLANE PRN (02:04)
[2016-07-16] MEDS: MAGNESIUM SULFATE-D5W PMX 1 GM in DEXTROSE/WATER 1 100ML.BAG IVPB SCH ×2 (03:07→04:34)
[2016-07-16] MEDS: SODIUM CHLORIDE 0.9% 1,000 ML IV SCH ×3 (07:30→20:59)
[2016-07-16 08:45] LABS: Anion Gap 7 mmol/L; Blood Urea Nitrogen <2 mg/dL (7-17); Calcium 7.6 mg/dL (8.4-10.2); Carbon Dioxide 23 mmol/L (22-30); Chloride 102 mmol/L (98-107); Glucose 85 mg/dL (74-99); Non-African American GFR(MDRD) >60 (>60 ml/min/1.73 sqM); Potassium 3.1 mmol/L (3.5-5.1); Sodium 132 mmol/L (137-145)
[2016-07-16] MEDS: HEPARIN SODIUM,PORCINE 5,000 UNIT/ML 1 ML VIAL SQ SCH ×2 (08:47→20:58)
[2016-07-16] MEDS: DRONABINOL 2.5 MG CAP PO SCH (08:47)
[2016-07-16] MEDS: levETIRAcetam 500 MG TAB PO SCH ×2 (08:48→20:59)
[2016-07-16] MEDS: PRAVASTATIN SODIUM 20 MG TAB PO SCH (08:48)
[2016-07-16] MEDS ORDERED: ONDANSETRON 4 MG/2 ML VIAL IVP PRN (08:49)
--- NOTE | 2016-07-16 08:59 | P.CONS ---
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 Apparently a small nodule had been present on previous CXR in 02/28. She had a CT chest with contrast on confirming a 6 cm lobulated mass in the RUL ( perihilar area). She proceeded to a bronchoscopy with Dr Malin on 02/07/16, with no definite endobronchial lesions seen. Transbronchial biopsies were positive for small cell undifferentiated carcinoma. PET scan on 02/14/16 revealed uptake only in the lung mass. The pt presented to [facility] ER on 02/15/16 with a syncopal episode and difficulty with finding words. Non contrast CT brain indicated a possible hemorrhagic stroke in the left frontal lobe. She was transferred to [facility]. MRI of brain showed a 4.1 x 4.3 cm mass in the left frontal lobe, and a 0.8 cm mass in the right frontal lobe. The pt was started on Decadron with marked improvement in symptoms. She was also placed on Keppra. She was discharged and started on WBRT at [facility] on 02/20/16, and completed that on 03/10/16. She then started [employer] 16 and Carboplatin and is s/p 4 cycles, completing those in mid 06/01. CT scans and MRI in 06/01 showed a partial response. She was admitted this time with a 5-6 day h/o profound, progressive weakness, and decreased appetite. She was needing help even to transfer. Her PO intake had declined markedly. She was clinically dehydrated, and was thus admitted, and consult placed. Review of Systems Constitutional: Reports poor appetite, Reports weakness, Reports weight loss Eyes: denies blurred vision, denies pain Ears: deny: decreased hearing, ear discharge, earache, tinnitus Ears, nose, mouth and throat: Denies headache, Denies sore throat Cardiovascular: Reports shortness of breath Respiratory: Reports cough, Reports dyspnea Gastrointestinal: Reports early satiety, Denies abdominal pain, Denies diarrhea , Denies nausea, Denies vomiting Genitourinary: Denies dysuria, Denies hematuria Menstruation: Reports postmenopausal Musculoskeletal: Reports muscle weakness Integumentary: Denies pruritus, Denies rash Neurological: Reports weakness Psychiatric: Reports difficulty concentrating Endocrine: Reports fatigue, Reports weight change Hematologic/Lymphatic: Reports as per HPI Past Medical History Past Medical History: COPD, GERD/Reflux, Hyperlipidemia Additional Past Medical History / Comment(s): DX W/LUNG CANCER DEC 2015 HAS HAD CHEMO THEN FOUND- METS TO BRAIN-HAS HAD RADIATION TX. OCC INTERMITTENT CONFUSION , CHRONIC BACK PAIN, WEARS DEPENDS. History of Any Multi-Drug Resistant Organisms: None Reported Past Surgical History: Hysterectomy Past Anesthesia/Blood Transfusion Reactions: No Reported Reaction Additional Past Anesthesia/Blood Transfusion Reaction / Comm: HAD 1 BLOOD TRANSFUSION-NO REACTION Past Psychological History: No Psychological Hx Reported Additional Psychological History / Comment(s): LIVES WITH SPOUSE [place],IN A SINGLE LEVEL HOME THAT HAS 5 STEPS TO ENTER.HAS 2 CATS AND 1 TURTLE. PT WEAK, USES A W/C OR ELECTRIC SCOOTER.STATED NO OUTSIDE SERVICES RECIEVED AND NO MEDICAL EQUIPMENT AT HOME. Smoking Status: Current every day smoker Past Alcohol Use History: Occasional Additional Past Alcohol Use History / Comment(s): PT NOT SURE EXACTLY WHEN SHE STARTED SMOKING -STATED "YOUNG" DOWN FROM 1.5 PPD TO 3 CIG PER DAY.NO ALCOHOL NOW Past Drug Use History: Marijuana Additional Drug Use History / Comment(s): NO MARIJUANA NOW. - Past Family History Father Family Medical History: No Reported History Mother Family Medical History: No Reported History Medications and Allergies Home Medications Medication Instructions Recorded Confirmed Type levETIRAcetam [Keppra] 500 mg PO Q12HR 05/25/16 07/14/16 History Docusate [Colace] 100 mg PO DAILY PRN 07/14/16 07/14/16 History Dronabinol [Marinol] 2.5 mg PO DAILY 07/14/16 07/14/16 History Pravastatin Sodium [Pravachol] 20 mg PO DAILY 07/14/16 07/14/16 History Allergies Allergy/AdvReac Type Severity Reaction Status Date / Time No Known Allergies Allergy Verified 07/14/16 10:36 Physical Exam Vitals: Vital Signs Temp Pulse Pulse Resp BP BP Pulse Ox 07/15/16 15:00 98.1 F 102 H 18 132/66 100 07/15/16 07:00 98.1 F 106 H 18 119/60 99 07/14/16 23:30 86 16 07/14/16 18:23 98.2 F 86 16 126/72 97 07/14/16 17:30 98.2 F 07/14/16 17:11 90 18 123/64 100 Intake and Output 07/15/16 07/15/16 07/15/16 06:59 14:59 22:59 Intake Total 520 Balance 520 Intake: Intake, IV Titration 400 Amount cefTRIAXone 2,000 mg In 400 Sodium Chloride 0.9% 100 ml @ 100 mls/hr IVPB Q24HR ADRIANA Rx#:[id number] Oral 120 Other: # Voids 1 Weight 32.659 kg 32.659 kg Patient Weight 07/16/16 06:59 Weight 32.659 kg - Constitutional Very weak and cachectic. General appearance: no acute distress - EENT Eyes: EOMI, PERRLA ENT: hearing grossly normal, normal oropharynx - Neck Neck: no lymphadenopathy - Respiratory Respiratory: right: diminished - Cardiovascular Rhythm: regular Heart sounds: normal: S1, S2 - Gastrointestinal General gastrointestinal: normal bowel sounds, soft - Integumentary Integumentary: normal - Neurologic Neurologic: CNII-XII intact - Musculoskeletal Musculoskeletal: generalized weakness, strength equal bilaterally - Psychiatric Psychiatric: A&O x's 3 Results CBC & Chem 7: 07/14/16 10:33 07/16/16 07:45 Labs: Abnormal Lab Results - Last 24 Hours (Table) 07/15/16 Range/Units 11:23 Sodium 133 L (137-145) mmol/L Potassium 3.4 L (3.5-5.1) mmol/L BUN 3 L (7-17) mg/dL Creatinine 0.30 L (0.52-1.04) mg/dL Calcium 8.1 L (8.4-10.2) mg/dL Microbiology - Last 24 Hours (Table) 07/14/16 10:54 Blood Culture - Preliminary Blood No Growth after 24 hours 07/14/16 12:57 Urine Culture - Preliminary Urine,Voided Chest x-ray: report reviewed CT scan - abdomen: report reviewed CT scan - chest: report reviewed CT scan - pelvis: report reviewed MRI - head: report reviewed Assessment and Plan (1) Dehydration Narrative/Plan: This is associated with the marked decrease in appetite, as well as progressively profound fatigue over the last few days. The patient has not had any chemotherapy for more than a month now, with the most recent CT scans as well as MRI of the brain from 06/01 showing stable to partially improved disease. The patient does not have any symptoms suggestive of infection. She has been started on IV hydration and is feeling somewhat better. Status: Acute (2) Small cell lung cancer Narrative/Plan: The patient's imaging studies, after first-line chemotherapy had shown stable disease to partial response. Her current deterioration, over the last few days is suspicious for progression, as there appears to be no other definite cause at this time. Therefore repeat imaging with computed tomography scan of the chest abdomen and pelvis will be ordered. If progression is confirmed,, then prognosis going forward would be quite guarded, given short period of time since her initial chemotherapy, as well as her poor performance status. Status: Acute
[2016-07-16] MEDS: IOHEXOL 350 MG/ML 25 ML BOTTLE (ORAL USE) PO PRN ×2 (09:30→10:34)
--- NOTE | 2016-07-16 11:36 | CT ---
EXAMINATION TYPE: CT ChestAbdPelvis w con DATE OF EXAM: 07/16/2016 COMPARISON: Previous study dated 06/02/2016 HISTORY: Follow up lung cancer. Complains of weakness CT DLP: 426.9 mGycm Automated exposure control for dose reduction was used. TECHNIQUE: Helical acquisition through the abdomen and pelvis was obtained without oral contrast but following the intravenous administration of 80 mL of Omnipaque 300. The data was formatted in the ax ial, coronal and sagittal projections. FINDINGS: The patient's right hilar mass lesion has changed in size from 5.7 x 4.9 x 4.9 cm to 5.1 x 6.2 x 6.8 cm. This mass is partially calcified. Subcarinal lymph node has changed in size from 6.1 to 8.1 cm. No other significant axillary, mediastinal or hilar adenopathy is seen. There is no pleural or pericardial fluid. There is some postobstructive pneumonitis peripheral to the patient's lung nodule. No additional lung nodules are seen. Within the abdomen, the liver, spleen and gallbladder are normal. There is fullness to both adrenal glands but no discrete adrenal mass is seen. This finding has not c hanged. Both kidneys demonstrate function and appear morphologically normal. The pancreas is unremarkable. There is no significant retroperitoneal, iliac or inguinal adenopathy. There is moderate atheromatous calcification of the visualized arterial tree. The uterus and ovaries are not visualized. The bladder is unremarkable. There is a paucity of intraabdominal fat. That and air within the colon makes it difficult to assess the colon. No obstructing or constricting lesions are seen. The appendix is not visualized. Small bowel loops are normal. There is no free fluid and no free air identified. No bony destructive lesion is seen. IMPRESSION: 1. OVERALL SLIGHT INCREASE IN THE SIZE OF THE PATIENT'S RIGHT HILAR MASS. 2. SLIGHT ENLARGEMENT IN THE PATIENT'S SUBCARINAL LYMPH NODE. 3. NO EVIDENCE OF PERIPHERAL METASTASES.
[2016-07-16 12:13] LABS: Magnesium 2.1 mg/dL (1.6-2.3)
[2016-07-16] MEDS: POTASSIUM CHLORIDE ER 20 MEQ TAB.ER PO SCH ×2 (13:54→15:01)
--- NOTE | 2016-07-16 16:04 | P.PN ---
Subjective Date of service 07/16/2016. Progress note being dictated for Dr. Hernandez Interval history: This a 56-year-old female admitted with severe generalized weakness, dehydration, malnutrition in a patient with lung cancer with metastasis to brain and multiple other medical issues. Maintained on IV fluid hydration, sodium 132, BUN less than 2, creatinine 0.28. Underwent CT of the chest,abdomen, and pelvis,results pending. Physical therapy attempted yesterday and earlier today to evaluate, patient declined. Patient educated on the importance and rationale of physical therapy evaluation and physical therapy will come back and evaluate patient today. Minimal diet intake, consuming only Magic cups. Potassium 3. Objective - Vital Signs Vital signs: Vital Signs Temp 97.7 F 07/16/16 07:00 Pulse 98 07/16/16 07:00 Resp 18 07/16/16 07:00 BP 102/69 07/16/16 07:00 Pulse Ox 100 07/16/16 07:00 Intake & Output 07/15/16 07/16/16 07/16/16 18:59 06:59 18:59 Weight 32.659 kg Other: # Voids 3 1 - Exam PHYSICAL EXAM: VITAL SIGNS: [As above] GENERAL: [Sitting up in bed, severely cachectic,] HEENT: [Pupils equal conjunctiva normal. No conjunctival pallor] NECK: [Supple, no JVD] RESPIRATORY EFFORT:[ Normal] LUNGS: [Clear to auscultation, no wheezes rhonchi or crackles] CARDIOVASCULAR[ regular S1 and S2, no murmurs rubs or gallops, no edema] GI: [Abdomen soft, nontender, nondistended, positive bowel sounds.] PSYCH: [Alert and oriented -3, mood and affect normal.] NEURO: [Significant generalized weakness with bilateral upper and lower extremity strength 3-4 /5.] - Labs CBC & Chem 7: 07/14/16 10:33 07/16/16 11:55 Labs: Abnormal Lab Results - Last 24 Hours (Table) 07/15/16 07/16/16 07/16/16 Range/Units 19:43 01:15 07:45 Sodium 132 L (137-145) mmol/L Potassium 6.1 H 3.1 L (3.5-5.1) mmol/L BUN <2 L (7-17) mg/dL Creatinine 0.28 L (0.52-1.04) mg/dL Calcium 7.6 L (8.4-10.2) mg/dL Magnesium 1.5 L (1.6-2.3) mg/dL 07/16/16 Range/Units 11:55 Sodium (137-145) mmol/L Potassium 3.0 L* (3.5-5.1) mmol/L BUN (7-17) mg/dL Creatinine (0.52-1.04) mg/dL Calcium (8.4-10.2) mg/dL Magnesium (1.6-2.3) mg/dL Microbiology - Last 24 Hours (Table) 07/14/16 10:54 Blood Culture - Preliminary Blood No Growth after 48 hours 07/14/16 12:57 Urine Culture - Final Urine,Voided Assessment and Plan Plan: 1. Severe generalized weakness secondary to dehydration, malnutrition. 2. [ Moderate to severe malnutrition, BMI 13.2]. 3. [ Severe cachexia secondary to primary lung cancer with metastatic lesions to brain, patient received radiation therapy]. 4. [ HyperLipidemia]. 5. [ Tachycardia secondary to dehydration]. 6. [ Hypovolemic hyponatremia]. 7. [ Acute renal failure]. Plan: Continue on current medication regime ,monitoring and symptomatic treatment. Maintain IV fluid hydration. Close monitoring of electrolytes, renal function with repeat labs ordered for a.m. Potassium supplemented with replacement protocol. Repeat lytes at 1600, post supplementation. Await CT results, as well as PT evaluation. Patient most likely will require subacute rehab, given her significant generalized weakness. Further recommendations to follow. Prognosis guarded given multiple complex medical issues. The impression and plan of care has been dictated as directed. : I performed a H&P examination of this patient and discussed the same with the dictator. I agree with the dictator's note. Any additional findings/opinions/ etc. will be noted.
[2016-07-16 17:27] LABS: Potassium 5.1 mmol/L (3.5-5.1)
[2016-07-16 23:09] VITALS: RESP 16
[2016-07-17] MEDS: HEPARIN SODIUM,PORCINE 5,000 UNIT/ML 1 ML VIAL SQ SCH ×2 (09:32→20:59)
[2016-07-17] MEDS: levETIRAcetam 500 MG TAB PO SCH ×2 (09:33→20:59)
[2016-07-17] MEDS: PRAVASTATIN SODIUM 20 MG TAB PO SCH (09:33)
[2016-07-17] MEDS: DRONABINOL 2.5 MG CAP PO SCH (09:40)
[2016-07-17] MEDS: SODIUM CHLORIDE 0.9% 1,000 ML IV SCH (17:23)
--- NOTE | 2016-07-17 17:56 | P.PN ---
Subjective Principal diagnosis: Metastatic small cell lung cancer The patient has improved somewhat, but remains very weak. Oral intake is still quite poor. She is now able to transfer from the bed to a chair with some assistance. Objective - Vital Signs Vital signs: Vital Signs Temp 98.3 F 07/17/16 14:54 Pulse 99 07/17/16 14:54 Resp 16 07/17/16 14:54 BP 121/83 07/17/16 14:54 Pulse Ox 100 07/17/16 14:54 Intake & Output 07/16/16 07/17/16 07/17/16 18:59 06:59 18:59 Intake Total 850 Balance 850 Weight 32.659 kg Intake: Intake, IV Titration 800 Amount Sodium Chloride 0.9% 1, 800 000 ml @ 100 mls/hr IV . Q10H ADRIANA Rx#:[id number] Oral 50 Other: # Voids 1 3 1 - Constitutional Constitutional Comment(s): Marked generalized weakness, somewhat slow affect - EENT Eyes: Present: EOMI, PERRLA ENT: Present: hearing grossly normal, normal oropharynx - Neck Thyroid: bilateral: normal size - Respiratory Respiratory: right: diminished - Cardiovascular Rhythm: regular Heart sounds: normal: S1, S2 - Gastrointestinal General gastrointestinal: Present: normal bowel sounds, soft - Integumentary Integumentary Comment(s): Hyperpigmented - Neurologic Neurologic: Present: CNII-XII intact - Musculoskeletal Musculoskeletal: Present: generalized weakness - Psychiatric Psychiatric: Present: A&O x's 3 - Labs CBC & Chem 7: 07/14/16 10:33 07/16/16 16:51 Labs: Abnormal Lab Results - Last 24 Hours (Table) 07/17/16 Range/Units 07:28 Magnesium 3.8 H (1.6-2.3) mg/dL Microbiology - Last 24 Hours (Table) 07/14/16 10:54 Blood Culture - Preliminary Blood No Growth after 72 hours Assessment and Plan (1) Dehydration Narrative/Plan: This is improved clinically. However the patient still remains quite weak. Status: Acute (2) Small cell lung cancer Narrative/Plan: Given the marked decline in the patient's status over the last few days, restaging CT scans were ordered. These showed progression in the lung and subcarina. However the degree of progression was not severe enough to explain the change in her status. Therefore imaging of the brain will be ordered. The patient remains quite weak, and will likely have to go to an ECF for rehab. It was discussed with the patient and her , that even if brain imaging was negative, given the progression in the lung and subcarina, she would need to resume chemotherapy with a second line agent . She is not a candidate for the same currently due to a very poor performance status. Therefore ECF rehab appears to be reasonable. The risk with that is progression of the cancer during the time that she is on rehab, which could compromise her performance status further and essentially preclude her from receiving chemotherapy. However there does not appear to be any other option given her very poor performance status at this time. It was discussed with her , that if her performance status did not improve, she would likely not be a candidate for further treatment. In that case he would need to discuss comfort care. He expressed understanding of the same. Status: Acute
[2016-07-18 00:41] VITALS: TEMP 98.2
[2016-07-18] MEDS: SODIUM CHLORIDE 0.9% 1,000 ML IV SCH ×2 (06:11)
[2016-07-18] MEDS: levETIRAcetam 500 MG TAB PO SCH (08:43)
[2016-07-18] MEDS: PRAVASTATIN SODIUM 20 MG TAB PO SCH (08:43)
[2016-07-18] MEDS: HEPARIN SODIUM,PORCINE 5,000 UNIT/ML 1 ML VIAL SQ SCH (08:44)
[2016-07-18] MEDS: DRONABINOL 2.5 MG CAP PO SCH (08:46)
[2016-07-18 08:50] VITALS: BP 110/56; PULSE 90
--- NOTE | 2016-07-18 09:18 | MR ---
EXAMINATION TYPE: MR brain wo/w con DATE OF EXAM: 07/17/2016 8:03 PM COMPARISON: 06/08/2016 HISTORY: Follow-up metastatic disease, Lung CA CONTRAST: Patient received 7 mL intravenous MultiHance gadolinium contrast. Multiplanar and multispin-echo imaging of the brain was performed . Pre and post contrast enhanced i mages are obtained. The ventricles, basal cisterns and sulci overlying the cerebral convexities are mildly enlarged. There is evidence of moderate periventricular white matter ischemic demyelination. Remote deep white matter insults are also noted. No acute edema is seen on diffusion weighted imaging. There is no evidence for midline shift or mass effect. Acute intracranial hemorrhage or extra-axial collection is not evident. Lobulated peripherally enhancing lesion adjacent to the left lateral ventricle is again noted and rutsy ears to have progressed slightly in the interval with extension into the corpus callosum and minimall y crosses the midline. Current measurement is approximately 3 x 2.3x 2.0 cm right previous measuremen t estimate is 2.1 x 1.9 x 2.4 cm. Direct stable tiny right parietal lesion measures less than 4 mm. N o additional lesions identified at this time. The paranasal sinuses and mastoid air cells are well-aerated. IMPRESSION: 1. Lobulated peripherally enhancing lesion adjacent to the left lateral ventricle appears to have pro gressed. There is now extension into the corpus callosum and minimally across the midline. Stable hig h right parietal lesion. No new lesions seen.
--- NOTE | 2016-07-19 09:50 | DS ---
DATE OF ADMISSION: 07/16/2016 DATE OF DISCHARGE: 07/18/2016 56-year-old Metastatic lung cancer patient. Patient brain lesions appeared to have worsened and discussed with oncology. Patient's prognosis extremely poor, will not be a candidate for chemotherapy. Discussed regarding hospice options. We will consult home hospice. Patient will be subsequently discharged today. Patient is admitted with dehydration and malnutrition. Both of which improved at this time. Kidney function improved. Patient will be discharged today. Patient was seen and examined on the day of discharge, vital signs are stable. PHYSICAL EXAMINATION: GENERAL: Patient the patient is thin built severely cachectic. HEENT: Pupils are round and equally reacting to light. EOMI. No scleral icterus. No conjunctival pallor. Normocephalic, atraumatic. No pharyngeal erythema. No thyromegaly. CARDIOVASCULAR: S1 and S2 present. No murmurs, rubs, or gallops. PULMONARY: Chest is clear to auscultation, no wheezing or crackles. ABDOMEN: Soft, nontender, nondistended, normoactive bowel sounds. No palpable organomegaly. MUSCULOSKELETAL: No joint swelling or deformity. EXTREMITIES: No cyanosis, clubbing, or pedal edema. NEUROLOGICAL: Gross neurological examination did not reveal any focal deficits. SKIN: No rashes. LABORATORY DATA: Sodium is 134. ASSESSMENT AND PLAN: 1. Severe generalized weakness secondary to dehydration, malnutrition, which improved. 2. Metastatic lung cancer, metastatic lesions to the brain. Hospice will be consulted as mentioned above. Patient's prognosis is extremely poor. I have I had a lengthy discussion with the patient. 3. Hypovolemic hyponatremia, which improved. 4. Hyperlipidemia. 5. Tachycardia secondary to dehydration, which also improved. Spent greater than 35 minutes in total discharge process. Discharge diet: Regular as tolerated. Activity as tolerated. Spent greater than 35 minutes in total discharge process. Patient will be discharged home with home hospice.
--- NOTE | 2016-08-02 19:09 | P.PN ---
Subjective Date of service 07/17/2016. Progress note being dictated for Dr. Hernandez Interval history: This a 56-year-old female admitted with severe generalized weakness, dehydration, malnutrition in a patient with lung cancer with metastasis to brain and multiple other medical issues. CT of the chest,abdomen , and pelvis reporting progression: increase in hilar mass as well as subcarinal lymph node enlargement. Mri Of brain pending. Extremely weak. Poor functional staus,declining PT, poor appetite. Objective - Vital Signs Vital signs: Vital Signs Temp 98.2 F 07/18/16 07:00 Pulse 90 07/18/16 07:00 Resp 16 07/18/16 07:00 BP 110/56 07/18/16 07:00 Pulse Ox 100 07/18/16 07:00 - Exam PHYSICAL EXAM: VITAL SIGNS: [As above] GENERAL: [Sitting up in bed, severely cachectic,] HEENT: [Pupils equal conjunctiva normal. conjunctival pallor, oral mucosa dry.] NECK: [Supple, no JVD] RESPIRATORY EFFORT:[ Normal] LUNGS: [Clear to auscultation, no wheezes rhonchi or crackles] CARDIOVASCULAR[ regular S1 and S2, no murmurs rubs or gallops, no edema] GI: [Abdomen soft, nontender, nondistended, positive bowel sounds.] PSYCH: [Alert and oriented -3, mood and affect normal.] NEURO: [Significant generalized weakness with bilateral upper and lower extremity strength 3-4 /5.] - Labs CBC & Chem 7: 07/14/16 10:33 07/16/16 16:51 Assessment and Plan Plan: 1. Severe generalized weakness secondary to dehydration, malnutrition. 2. 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 3. [ Moderate to severe malnutrition, BMI 13.2]. 4. [ HyperLipidemia]. 5. [ Tachycardia secondary to dehydration]. 6. [ Hypovolemic hyponatremia]. 7. [ Acute renal failure]. being discuseed Plan: Continue on current medication regime ,monitoring and symptomatic treatment. Maintain IV fluid hydration. Prognosis poor, Brain MRI pending.If MRI shows progression of disease,options of comfort care with hospice will be discussed. Further recommendations to follow. The impression and plan of care has been dictated as directed. : Richard performed a H&P examination of this patient and discussed the same with the dictator. I agree with the dictator's note. Any additional findings/opinions/ etc. will be noted.
== END 2016-07-18 14:35 | disposition hospice, home (50) | DRG 640 ==
LOC: EC 10:24 → INTOOBSV 12:42 → 5ONC 12:42 → OBSVTOIN 07-16 13:04
PROVIDERS: ADMIT Hospitalist; ATTEND Hospitalist
DX: E86.0 Dehydration (principal); E43 Unspecified severe protein-calorie malnutrition; N17.9 Acute kidney failure, unspecified; R64 Cachexia; C79.31 Secondary malignant neoplasm of brain; Z68.1 Body mass index [BMI] 19.9 or less, adult; J44.9 Chronic obstructive pulmonary disease, unspecified; E87.1 Hypo-osmolality and hyponatremia; E78.5 Hyperlipidemia, unspecified; F17.200 Nicotine dependence, unspecified, uncomplicated; K21.9 Gastro-esophageal reflux disease without esophagitis; Z79.899 Other long term (current) drug therapy; Z86.73 Personal history of transient ischemic attack (TIA), and cerebral infarction without residual deficits
CPT/HCPCS: 36415; 70553; 71020; 71260; 74177; 80048; 80051; 80053; 81001; 82550; 82553; 83605; 83735; 83880; 84132; 84484; 85025; 85610; 85730; 87040; 87086; 93005; 96361; 96365; 96375; 99285